=== PATIENT | male | born 1940 | race Caucasian/White ===

== ENCOUNTER 2020-06-30 09:26 | Day surgery (SDC) | payer MEDICARE, BC ==
[~2020-06-30 09:26] MED LIST: Lactated Ringers 1,000 ML IV SCH; Sodium Chloride 0.9% 10 ML Syringe FLUSH PRN
--- NOTE | 2020-06-30 10:46 | PCM.HPR ---
H & P Addendum review - H & P Addendum Review Date of Original H & P: 06/15/20 Date Reviewed: 06/30/20 Time Reviewed: 10:45 Patient was Examined: No Changes
[2020-06-30] MEDS ORDERED: Midazolam 1 MG/ML 2 ML SDV ONE ×2 (10:56)
[2020-06-30] MEDS ORDERED: Propofol 200 MG/20 ML SDV ONE ×2 (10:56)
--- NOTE | 2020-06-30 11:28 | PCM.OPNOTE ---
- General Post-Op/Procedure Note Date of Surgery/Procedure: 06/30/20 Operative Procedure(s): Colonoscopy Findings: Diverticulosis Pre Op Diagnosis: Hx Polyps Post-Op Diagnosis: Same Anesthesia Technique: FRANCIS Primary Surgeon: Ford Camp Anesthesia Provider: Nayely Sheldon Complications: None Condition: Good
[2020-06-30 14:00] VITALS: BP 116/74; PULSE 78
--- NOTE | 2020-07-05 07:02 | OR ---
Date of Procedure: 06/30/2020 PREOPERATIVE DIAGNOSIS: History of colon polyps. POSTOPERATIVE DIAGNOSIS: Diverticulosis. PROCEDURE: Colonoscopy. ANESTHESIA: IV sedation. PROCEDURE IN DETAIL: The patient was brought to the procedure room where he was placed on his left side and IV sedation administered. Digital rectal exam was performed, which was normal. Colonoscope was inserted and advanced to the level of the cecum without difficulty. Cecal position was confirmed by identifying the appendiceal lumen and ileocecal valve. Prep was good with some thick liquid stool remaining in the cecum and minimal throughout the colon that was mostly irrigated and suctioned. I was able to visualize the cecum well, and there was no recurrence of his previous large polyp. Upon withdrawing the scope, he has diverticulosis throughout the entire colon, most notably on the left side. Rectum was normal and retroflexion was normal. Air was removed and the scope withdrawn. Patient tolerated the procedure well and returned to recovery in stable condition. No further colonoscopies are necessary due to the patient's age. ARIELLE ISSA MD /[id number]
== END 2020-06-30 13:15 | disposition home or self-care (01) ==
LOC: LL.SDS 09:26
PROVIDERS: ATTEND Surgery
DX: Z12.11 Encounter for screening for malignant neoplasm of colon (principal); K57.30 Diverticulosis of large intestine without perforation or abscess without bleeding; Z01.812 Encounter for preprocedural laboratory examination; Z20.828 Contact with and (suspected) exposure to other viral communicable diseases; I10 Essential (primary) hypertension; Z98.890 Other specified postprocedural states; E11.42 Type 2 diabetes mellitus with diabetic polyneuropathy; Z79.899 Other long term (current) drug therapy; Z88.8 Allergy status to other drugs, medicaments and biological substances; Z87.891 Personal history of nicotine dependence; L98.491 Non-pressure chronic ulcer of skin of other sites limited to breakdown of skin; R31.9 Hematuria, unspecified
CPT/HCPCS: 00812; 82962; G0105; J2250; J2704; J7120; U0002

== ENCOUNTER 2020-12-14 18:17 | Emergency (ER) | payer MEDICARE, BC ==
[2020-12-14 18:29] VITALS: PULSE 63
[2020-12-14 19:04] VITALS: BP 141/91
--- NOTE | 2020-12-14 19:07 | EDM.PDOC ---
ED HPI GENERAL MEDICAL PROBLEM - General Chief Complaint: General Stated Complaint: hypertension Time Seen by Provider: 12/14/20 18:35 Source of Information: Reports: Patient, Family History Limitations: Reports: No Limitations - History of Present Illness INITIAL COMMENTS - FREE TEXT/NARRATIVE: Pt. presents to ER with complaints of elevated blood pressure. Pt. states that he took his BP at home several times today and states that his BP was in the 190/100 range on his home wrist blood pressure cuff. Pt. has a history of chronic hypoxia and exercise intolerance. He has seen Dr. Wood from [facility] for this, and is scheduled to have a stress test later this month. Pt. states that he has been experiencing weakness in both of his legs and shortness of breath when walking for months. Pt. states that he contacted the cardiology clinic about his blood pressure today and they advised him to come to the ER for evaluation. Pt. denies any current chest pain, palpitation, nausea, or vomiting. He does have dyspnea on exertion, but states that this is chronic for him. No acute complaints today, other than elevated BP on home machine. Onset: Today - Related Data Allergies Allergy/AdvReac Type Severity Reaction Status Date / Time aspirin Allergy Severe GI Bleed Verified 12/14/20 18:19 NSAIDS (Non-Steroidal Allergy Severe GI Bleed Verified 12/14/20 18:19 Anti-Inflamma pregabalin [From Lyrica] Allergy Severe Pain, Verified 12/14/20 18:19 Suicidal Idiations moexipril HCl [From Univasc] Allergy Intermediate Shaking, Verified 12/14/20 18:19 brusing, bleeding tramadol Allergy Mild Itching, Verified 12/14/20 18:19 Rash amlodipine Allergy Other Verified 12/14/20 18:19 levofloxacin [From Levaquin] Allergy Muscle Verified 12/14/20 18:19 Aches Home Meds: Home Meds Acetaminophen [Tylenol Extra Strength] 500 mg PO Q6HR PRN 12/06/15 [History] Cinnamon Bark [Cinnamon] 1,000 mg PO DAILY@1200 12/06/15 [History] Fish Oil/[place]-3 Fatty Acids [Fish Oil 1,000 MG] 1 tab PO DAILY@0800 12/06/15 [History] Mirtazapine [Remeron] 30 mg PO BEDTIME 12/06/15 [History] Multivitamin [Multi-Vitamin Daily] 1 each PO DAILY@0800 12/06/15 [History] Omeprazole 20 mg PO DAILY@1800 12/06/15 [History] Spironolact/Hydrochlorothiazid [Spironolactone-HCTZ 25-25] 1 tab PO DAILY@08 12/06/15 [History] Betamethasone/Clotrimazole [Lotrisone] 1 applic TOP ASDIRECTED PRN 12/13/15 [History] Cholecalciferol (Vitamin D3) [Vitamin D3] 1,000 unit PO DAILY@1800 12/13/15 [History] Magnesium Oxide 1,600 mg PO DAILY 12/13/15 [History] DULoxetine [Cymbalta] 60 mg PO BID 07/03/16 [History] Vitamin B Complex 1 tab PO DAILY@1200 07/03/16 [History] Ascorbic Acid [Vitamin C] 1,000 mg PO BID 06/22/20 [History] Metoprolol Tartrate 25 mg PO BID 06/22/20 [History] Modafinil [Provigil] 50 mg PO DAILY 06/22/20 [History] Triamcinolone Acetonide [Kenalog 0.1% Crm] 1 applic TOP BID PRN 06/22/20 [History] buPROPion HCL [Wellbutrin Xl] 150 mg PO DAILY 06/22/20 [History] Calcium Carbonate/Vitamin D3 [Calcium Carbonate/Vitamin D 600 MG-200 Unit] 2 tab PO DAILY 06/30/20 [History] Past Medical History HEENT History: Reports: Cataract Other HEENT History: wears glasses. Has full upper denture Cardiovascular History: Reports: Hypertension Respiratory History: Reports: Sleep Apnea Gastrointestinal History: Reports: Colon Polyp Other Gastrointestinal History: bleeding ulcers Genitourinary History: Reports: Renal Calculus Musculoskeletal History: Reports: Arthritis, Fracture Other Musculoskeletal History: recurrent falls Neurological History: Reports: Neuropathy, Peripheral Other Neuro History: history to bleed to head after fall down stairs 2006 Psychiatric History: Reports: Anxiety, Depression Endocrine/Metabolic History: Reports: Obesity/BMI 30+, Vitamin D Deficiency Oncologic (Cancer) History: Reports: None Dermatologic History: Reports: Cellulitis Other Dermatologic History: recent surgery to left lower leg/ankle. healing lacerations to left ankle. healing wounds. - Infectious Disease History Infectious Disease History: Reports: MRSA Other Infectious Disease History: recent history of bacteremia patient states from sores on his legs and surgery - Past Surgical History HEENT Surgical History: Reports: Cataract Surgery GI Surgical History: Reports: Appendectomy, Cholecystectomy Male Surgical History: Reports: Kidney Stone Extraction, Lithotripsy ([facility]), Renal Calculus, Other (See Below) Other Male Surgeries/Procedures: hx. of stent placement for kidney stones Musculoskeletal Surgical History: Reports: Knee Replacement, Shoulder Surgery, Other (See Below) Other Musculoskeletal Surgeries/Procedures:: Bilateral ankle fusion Dermatological Surgical History: Reports: Other (See Below) - History Comment History Comment: See dictation Social & Family History - Tobacco Use Tobacco Use Status *Q: Former Tobacco User Used Tobacco, but Quit: Yes Month/Year Tobacco Last Used: 1973 Second Hand Smoke Exposure: No - Caffeine Use Caffeine Use: Reports: Coffee - Recreational Drug Use Recreational Drug Use: No ED ROS GENERAL - Review of Systems Review Of Systems: See Below Constitutional: Denies: Diaphoresis Respiratory: Reports: Shortness of Breath (on exertion). Denies: Cough, Sputum, Hemoptysis Cardiovascular: Denies: Chest Pain Endocrine: Reports: No Symptoms GI/Abdominal: Reports: No Symptoms. Denies: Hematemesis, Hematochezia, Nausea, Vomiting : Reports: No Symptoms Musculoskeletal: Reports: No Symptoms Skin: Reports: No Symptoms Neurological: Reports: No Symptoms, Other (no unilateral weakness, numbness or tingling in extremities. No problems with speech or ambulation. ) Psychiatric: Reports: No Symptoms Hematologic/Lymphatic: Reports: No Symptoms Immunologic: Reports: No Symptoms ED EXAM, GENERAL - Physical Exam Exam: See Below Exam Limited By: No Limitations General Appearance: Alert, WD/WN, No Apparent Distress Head: Atraumatic, Normocephalic Neck: Supple, Non-Tender Respiratory/Chest: No Respiratory Distress, Lungs Clear, Normal Breath Sounds, No Accessory Muscle Use, Chest Non-Tender Cardiovascular: Normal Peripheral Pulses, Regular Rate, Rhythm, Other (+ peripheral edema, pt. states is unchanged.) GI/Abdominal: Soft, Non-Tender, No Distention, No Mass Extremities: Normal Inspection, Normal Range of Motion, Pedal Edema, Other (Pt. ambulated in ER holding a wheelchair. Uses a walker at home.) Neurological: Alert, Oriented, CN II-XII Intact, Normal Cognition, Normal Reflexes Psychiatric: Normal Affect, Normal Mood Skin Exam: Warm, Dry, Intact, Normal Color Course - Vital Signs Last Recorded V/S: Last Vital Signs Temp 36.1 C 12/14/20 18:28 Pulse 63 12/14/20 18:28 Resp 16 12/14/20 18:28 BP 141/91 H 12/14/20 19:04 Pulse Ox 95 12/14/20 18:28 Departure - Departure Time of Disposition: 19:40 Disposition: Home, Self-Care 01 Clinical Impression: Hypertension - Discharge Information Referrals: Marianne Mcknight PA [Primary Care Provider] - Forms: ED Department Discharge Additional Instructions: Follow-up with cardiology as directed. Return to ER if you have any chest pain, shortness of breath at rest. Make sure you are using your walker when you are up and around. Sepsis Event Note (ED) - Evaluation Sepsis Screening Result: No Definite Risk - Focused Exam Vital Signs: Vital Signs Temp Pulse Resp BP Pulse Ox 12/14/20 19:04 141/91 H 12/14/20 18:28 36.1 C 63 16 140/78 95 - Problem List Review Problem List Initiated/Reviewed/Updated: Yes - Assessment/Plan Plan: Pt. was taken for a walk around the department tonight. Overall, he did well. He did complain of some fatigue toward the end, but this is consistent with the symptoms he is being worked up for with cardiology. He did not experience any chest pain. Vitals were checked when sitting and standing with no significant change in heart rate. BP remained about the same. Pt. was offered further workup but refused, stating he was most concerned about his BP, since the other problems have been going on for some time. Advised close follow-up with primary care and specialty providers. All questions were answered.
== END 2020-12-14 19:15 | disposition home or self-care (01) ==
LOC: LL.ED 18:17
DX: I10 Essential (primary) hypertension (principal); G62.9 Polyneuropathy, unspecified; E66.9 Obesity, unspecified; Z87.891 Personal history of nicotine dependence; Z88.6 Allergy status to analgesic agent; Z88.8 Allergy status to other drugs, medicaments and biological substances; Z88.5 Allergy status to narcotic agent; Z88.1 Allergy status to other antibiotic agents; Z79.899 Other long term (current) drug therapy
CPT/HCPCS: 99283

== ENCOUNTER 2020-12-25 02:09 | Emergency (ER) | payer MEDICARE, BC ==
[2020-12-25 02:16] VITALS: BP 145/73; PULSE 55
--- NOTE | 2020-12-25 02:37 | EDM.PDOC ---
ED HPI GENERAL MEDICAL PROBLEM - General Chief Complaint: Lower Extremity Injury/Pain Stated Complaint: left foot 2nd toe pain Time Seen by Provider: 12/25/20 02:25 Source of Information: Reports: Patient, Family, Old Records ([facility] chart/EMR) History Limitations: Reports: No Limitations - History of Present Illness INITIAL COMMENTS - FREE TEXT/NARRATIVE: The patient was brought to the emergency room via private automobile by his for evaluation of a 1 day history of increasing ulceration and redness of his second left toe with no history of injury and the patient compliant with his diabetic shoes. There has been some mild drainage from this area with 8/10 throbbing type pain at this time. He does not normally take Accu-Cheks, although his diabetes has been under good control with no current medications required. The patient denies any chest pain/pressure, heart flutter, dizziness, orthostasis, orthopnea, diaphoresis, paresthesias, recent decreased exercise tolerance, or any other anginal-type symptoms. No recent history of abdominal pain, heartburn, nausea, diarrhea, melena, gross hematochezia, or any food intolerance, including fatty foods, etc.. He denies any gross hematuria, colic, or with UTI symptoms. The patient also denies any recent fever, cough, wheezing, dyspnea, etc.. Onset: Gradual Onset Date: 12/24/20 Duration: Constant, Getting Worse Location: Reports: Lower Extremity, Left. Denies: Head, Face, Neck, Chest, Ab domen, Back, Pelvis, Upper Extremity, Left, Upper Extremity, Right, Lower Extremity, Right, Radiates to Quality: Reports: Ache, Same as Previous Episode Severity: Moderate Improves with: Reports: None Worsens with: Reports: None Context: Reports: Other (As above). 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(s) Left Toe-Long Pain Score (Numeric/FACES): 8 - Related Data Allergies Allergy/AdvReac Type Severity Reaction Status Date / Time aspirin Allergy Severe GI Bleed Verified 12/25/20 02:17 NSAIDS (Non-Steroidal Allergy Severe GI Bleed Verified 12/25/20 02:17 Anti-Inflamma pregabalin [From Lyrica] Allergy Severe Pain, Verified 12/25/20 02:17 Suicidal Idiations moexipril HCl [From Univasc] Allergy Intermediate Shaking, Verified 12/25/20 02:17 brusing, bleeding tramadol Allergy Mild Itching, Verified 12/25/20 02:17 Rash amlodipine Allergy Other Verified 12/25/20 02:17 levofloxacin [From Levaquin] Allergy Muscle Verified 12/25/20 02:17 Aches Home Meds: Home Meds Acetaminophen [Tylenol Extra Strength] 500 mg PO Q6HR PRN 12/06/15 [History] Cinnamon Bark [Cinnamon] 1,000 mg PO DAILY@1200 12/06/15 [History] Mirtazapine [Remeron] 30 mg PO BEDTIME 12/06/15 [History] Multivitamin [Multi-Vitamin Daily] 1 each PO DAILY@0800 12/06/15 [History] Omeprazole 20 mg PO DAILY@1800 12/06/15 [History] Spironolact/Hydrochlorothiazid [Spironolactone-HCTZ 25-25] 1 tab PO DAILY@08 12/06/15 [History] Betamethasone/Clotrimazole [Lotrisone] 1 applic TOP ASDIRECTED PRN 12/13/15 [History] Cholecalciferol (Vitamin D3) [Vitamin D3] 1,000 unit PO DAILY@1800 12/13/15 [History] Magnesium Oxide 1,600 mg PO DAILY 12/13/15 [History] DULoxetine [Cymbalta] 60 mg PO BID 07/03/16 [History] Vitamin B Complex 1 tab PO DAILY@1200 07/03/16 [History] Ascorbic Acid [Vitamin C] 1,000 mg PO BID 06/22/20 [History] Metoprolol Tartrate 25 mg PO BID 06/22/20 [History] Triamcinolone Acetonide [Kenalog 0.1% Crm] 1 applic TOP BID PRN 06/22/20 [History] buPROPion HCL [Wellbutrin Xl] 150 mg PO DAILY 06/22/20 [History] Calcium Carbonate/Vitamin D3 [Calcium Carbonate/Vitamin D 600 MG-200 Unit] 2 tab PO DAILY 06/30/20 [History] Naproxen Sodium [Aleve] 1 cap PO BID 12/25/20 [History] Sulfamethoxazole/Trimethoprim [Septra DS] 1 each PO BID #14 tab 12/25/20 [Rx] Past Medical History HEENT History: Reports: Cataract, Sinusitis Other HEENT History: Patient wears glasses. Complete upper dentures. Cardiovascular History: Reports: CAD, Cardiomyopathy, High Cholesterol, Hypertension, Other (See Below) Other Cardiovascular History: Coronary artery calcifications by x-rays with no history of [place]. Cardiomegaly. Respiratory History: Reports: Bronchitis, Recurrent, COPD, Intubation, Previous, Sleep Apnea, Other (See Below). Denies: Intubation, Difficult Other Respiratory History: Patient is compliant with his CPAP. Gastrointestinal History: Reports: Cholelithiasis, Colon Polyp, Diverticulosis, Gastritis, GERD, GI Bleed, PUD. Denies: Pancreatitis Other Gastrointestinal History: Upper GI bleed requiring previous blood transfusions. Benign gastritis/gastric polyp by EGD as below. Colonic polyps of unknown type. Possible unknown type of pancreatic mass by CT scan in 2017 with no further work-up. Genitourinary History: Reports: BPH, Renal Calculus, UTI, Recurrent, Other (See Below). Denies: Acute Renal Failure, Chronic Renal Insuffiency, Diabetic Nephropathy Other Genitourinary History: Recurrent UTIs with history of urosepsis. Bilateral nephrolithiasis and urolithiasis requiring procedures as below. Musculoskeletal History: Reports: Arthritis, Back Pain, Chronic, Fracture, Neck Pain, Chronic, Osteoarthritis, Other (See Below) Other Musculoskeletal History: Polymyalgia. Right shoulder/proximal humeral fracture requiring surgery in his 60s as below. Neurological History: Reports: Concussion, Headaches, Chronic, Head Trauma, Neuropathy, Diabetic, Neuropathy, Peripheral, Other (See Below) Other Neuro History: History to bleed to head after fall down stairs 2006 with additional history of recurrent falls. Psychiatric History: Reports: Anxiety, Depression Endocrine/Metabolic History: Reports: Diabetes, Type II, Hypomagnesemia, Obesity/BMI 30+, Vitamin D Deficiency, Other (See Below). 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 Hyponatremia Hematologic History: Reports: Anemia, Blood Transfusion(s), Other (See Below) Other Hematologic History: Blood transfusion secondary to upper GI bleed as above. Oncologic (Cancer) History: Reports: None Dermatologic History: Reports: Cellulitis, Venous Stasis Dermatitis Other Dermatologic History: Recurrent diabetic ulcers with additional history of MRSA. - Infectious Disease History Infectious Disease History: Reports: Chicken Pox, Influenza, MRSA, Mumps, Shingles Other Infectious Disease History: Possible history of sepsis from his diabetic ulcers. - Past Surgical History HEENT Surgical History: Reports: Cataract Surgery, Oral Surgery, Other (See Below) Other HEENT Surgeries/Procedures: Complete upper dentures. GI Surgical History: Reports: Appendectomy, Cholecystectomy, Colonoscopy, EGD, Polypectomy, Other (See Below) Other GI Surgeries/Procedures: ED on 11/20/2012 with polypectomy of benign gastric polyp. Last colonoscopy on 06/30/2020 with no evidence of recurrence of his previous colonic polyp. Male Surgical History: Reports: Kidney Stone Extraction, Lithotripsy (ES[facility]), Renal Calculus, Ureteral Stent, Other (See Below) Musculoskeletal Surgical History: Reports: Arthroscopic Procedure, Joint Replacement, Knee Replacement, ORIF, Shoulder Surgery, Other (See Below) Other Musculoskeletal Surgeries/Procedures:: ORIF of right proximal humeral fracture in his 60s. Bilateral TKA in 2001. 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 Left Achilles tendon repair. Dermatological Surgical History: Reports: Skin Graft, Other (See Below) Other Dermatological Surgeries/Procedures: Unsuccessful left heel skin graft in 2014. - Past Imaging History Past Imaging History: Reports: CAT Scan (Head on 12/06/2015, 02/17/2014, 03/27/2013. Sinuses on 03/12/2013. Abdomen and pelvis on 09/24/2016 and 01/20/2016. Left ankle on 02/15/2016. Maxillofacial on 02/17/2014), MRI (Brain on 02/04/2017.), Ul trasound (Renal on 02/04/2017 and 07/06/2016.) - History Comment History Comment: See dictation Social & Family History - Tobacco Use Tobacco Use Status *Q: Former Tobacco User Tobacco Use Within Last Twelve Months: No Years of Tobacco use: 57 Packs/Tins Daily: 1 Packs/Tins Daily Comment: Smoked between ages 16 and 73. 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 ED EXAM, GENERAL - Physical Exam Exam: See Below Exam Limited By: No Limitations General Appearance: Alert, WD/WN, No Apparent Distress Head: Atraumatic, Normocephalic Neck: Normal Inspection, Supple, Non-Tender, Full Range of Motion, Carotid Bruit (Mild bilateral carotid bruits). No: Lymphadenopathy (L), Lymphadenopathy (R), Thyromegaly Respiratory/Chest: No Respiratory Distress, Lungs Clear, Normal Breath Sounds, No Accessory Muscle Use, Chest Non-Tender. No: Pleural Rub, Retractions Cardiovascular: Normal Peripheral Pulses, No Gallop, No JVD, No Murmur, No Rub, Bradycardia (Mild, regular rhythm). No: No Edema (Dependent edema as below), Gallop/S3, Gallop/S4, Friction Rub Peripheral Pulses: 2+: Radial (L), Radial (R), Dorsalis Pedis (L), Dorsalis Pedis (R) GI/Abdominal: Normal Bowel Sounds, Soft, Non-Tender, No Organomegaly, No Distention, No Abnormal Bruit, No Mass, Other (Obese). No: Guarding (Male) Exam: Deferred Rectal (Males) Exam: Deferred Back Exam: Normal Inspection, Full Range of Motion. No: CVA Tenderness (L), CVA Tenderness (R), Muscle Spasm Extremities: Normal Range of Motion, Normal Capillary Refill, Pedal Edema (+1 bilateral pedal/pretibial edema), Leg Pain (Minimal tenderness over diabetic toe ulcer), Redness (+1 Erythema surrounding a 0.5 cm grade 2 diabetic toe ulcer over the PIP of his second left toe with only minimal drainage), Other (Pes planus bilaterallymoderate. Diabetic shoes bilaterally). No: Dara's Sign, Increased Warmth Neurological: Alert, Oriented, CN II-XII Intact, Normal Cognition, Normal Gait, No Motor/Sensory Deficits Psychiatric: Normal Affect, Normal Mood Skin Exam: Erythema (As above), Wound/Incision (Diabetic toe ulcer as above with additional possible beginning first left toe ulcer), Other (Venous dermatitis bilaterally including left distal anterior tibial region moderate in nature). No: Diaphoretic, Increased Warmth, Lymphangitis Lymphatic: No Adenopathy Course - Vital Signs Last Recorded V/S: Last Vital Signs Temp 36.6 C 12/25/20 02:11 Pulse 55 L 12/25/20 02:11 Resp 18 12/25/20 02:11 BP 145/73 H 12/25/20 02:11 Pulse Ox 97 12/25/20 02:11 Vital Signs - 24 hr 12/25/20 02:11 Temperature [ 36.6 C Temporal] Pulse, 55 L Peripheral [ Left Pulse Oximetry] Respiratory 18 Rate Blood Pressure 145/73 H [Left Upper Arm ] O2 Sat by Pulse 97 Oximetry - Orders/Labs/Meds Orders: Active Orders 24 hr Category Date Time Status Blood Glucose Check, Bedside [RC] STAT Care 12/25/20 02:34 Active CULTURE WOUND + SMEAR [RM] Stat Lab 12/25/20 02:34 Ordered Obtain Past Medical Record [OM.PC] Routine Oth 12/25/20 02:34 Active Labs: Laboratory Tests 12/25/20 Range/Units 02:41 POC Glucose 123 H (70-99) mg/dL Wound specimen collected for Gram stain, culture, and sensitivity. Meds: Medications Discontinued Medications Generic Name Dose Route Start Last Admin Trade Name Freq PRN Reason Stop Dose Admin Neomycin/Polymyxin/Bacitracin 1 each 12/25/20 02:36 12/25/20 02:52 Bacitracin/Neomycin/Polymyxin B Oint 0.9 Gm U/D Packet TOP 12/25/20 02:37 1 each ONETIME ONE Administration - Radiology Interpretation Free Text/Narrative:: None Departure - Departure Time of Disposition: 03:17 Disposition: Home, Self-Care 01 Condition: Good Clinical Impression: Mixed anxiety depressive disorder Cellulitis Qualifiers: Site of cellulitis: extremity Site of cellulitis of extremity: lower extremity Laterality: left Qualified Code(s): L03.116 - Cellulitis of left lower limb Diabetes mellitus Qualifiers: Diabetes mellitus type: type 2 Diabetes mellitus intermediate designer insulin use: without intermediate designer use Diabetes mellitus complication status: without complication Qualified Code(s): E11.9 - Type 2 diabetes mellitus without complications Osteoarthritis Qualifiers: Osteoarthritis location: multiple joints Osteoarthritis type: primary Qualified Code(s): M89.49 - Other hypertrophic osteoarthropathy, multiple sites - Discharge Information *PRESCRIPTION DRUG MONITORING PROGRAM REVIEWED*: Not Applicable *COPY OF PRESCRIPTION DRUG MONITORING REPORT IN PATIENT BRANDON: Not Applicable Prescriptions: Sulfamethoxazole/Trimethoprim [Septra DS] 1 each PO BID #14 tab Instructions: Diabetes Mellitus and Foot Care, Cellulitis, Adult, [id number], Sulfamethoxazole; Trimethoprim, [id number] tablets Referrals: Marianne Mcknight PA [Primary Care Provider] - Forms: ED Department Discharge Additional Instructions: 1. Follow-up with your regular provider on 12/26 as already scheduled and discussed today's emergency room visit and new antibiotic medication/Bactrim. 2. Consider discontinuation of recently initiated Aleve secondary to your previous history of stomach ulcers with this type of medication. Avoid OTC aspirin, ibuprofen, etc. with all of these medications in the NSAID class 3. A specimen for culture and sensitivity has been collected from your toe as discussed 4. Take all 10 days of your new Bactrim DS, i.e., both the medication supplied in the emergency room and also that sent to your pharmacy. 5. Antibacterial soap wash/soak with subsequent antibacterial dressing such as Neosporin, etc. as directed 2 times per day until the wound site completely heals. Keep the area clean and dry with activity restrictions as discussed. Never use hydrogen peroxide for wound care. 6. Relieve pressure from your foot area until wound heals with limited diabetic shoe use, etc. as discussed 7. Immediately after this visit verify that your cellular telephone's voicemail has been activated and is empty. Also verify that your home telephone's answering machine is operating properly and has space to receive messages. Note that it is sometimes necessary for us to be able to contact you at a later date to discuss your medical care. 8. Please remember that we are ALWAYS here for you and want to answer any questions you may have. Feel free to call the hospital any time and we call you back MAURI. Sepsis Event Note (ED) - Evaluation Sepsis Screening Result: No Definite Risk - Focused Exam Vital Signs: Vital Signs Temp Pulse Resp BP Pulse Ox 12/25/20 02:11 36.6 C 55 L 18 145/73 H 97 - Problem List & Annotations (1) Cellulitis SNOMED Code(s): 588301623 Code(s): L03.90 - CELLULITIS, UNSPECIFIED Status: Acute Priority: High Onset Date: ~12/24/20 Annotation/Comment:: Grade 2 diabetic left toe ulcer as above with specimen collected for culture and sensitivity as above. Neosporin dressing placed by the nurse. Note previous disinfection with chlorhexidine in this facility. Secondary to his history of MRSA patient was initiated on Bactrim DS. Close follow-up by regular provider. Podiatry referral depending on his clinical course with patient already having diabetic shoes. Qualifiers: Site of cellulitis: extremity Site of cellulitis of extremity: lower extremity Laterality: left Qualified Code(s): L03.116 - Cellulitis of left l ower limb (2) Diabetes type 2, controlled SNOMED Code(s): 88155394, 246582914 Code(s): E11.9 - TYPE 2 DIABETES MELLITUS WITHOUT COMPLICATIONS Status: Chronic Priority: Medium Annotation/Comment:: Random Accu-Chek normal in this facility. He is not currently on any medications. Weight loss in moderation is advisable. Close follow-up by regular provider. Qualifiers: Diabetes mellitus intermediate designer insulin use: unspecified intermediate designer insulin use status Diabetes mellitus complication status: without complication Qualified Code(s): E11.9 - Type 2 diabetes mellitus without complications (3) Osteoarthritis SNOMED Code(s): 499655878 Code(s): M19.90 - UNSPECIFIED OSTEOARTHRITIS, UNSPECIFIED SITE Status: Chronic Priority: Medium Annotation/Comment:: Patient has been having worsening chronic right shoulder pain during the last month with patient starting Aleve on his own 1 month ago in spite of his previous history of bleeding gastric ulcers requiring transfusions from previous NSAIDs. He was advised to discuss this further with his regular provider with probable discontinuation of this medication. Qualifiers: Osteoarthritis location: multiple joints Osteoarthritis type: primary Qualified Code(s): M89.49 - Other hypertrophic osteoarthropathy, multiple sites (4) Mixed anxiety depressive disorder SNOMED Code(s): 369328788 Code(s): F41.8 - OTHER SPECIFIED ANXIETY DISORDERS Status: Chronic Priority: Medium Annotation/Comment:: Stable by patient history (5) Peptic reflux disease SNOMED Code(s): 511000900 Code(s): K21.9 - GASTRO-ESOPHAGEAL REFLUX DISEASE WITHOUT ESOPHAGITIS Status: Chronic Priority: Medium Annotation/Comment:: Stable by history (6) Hypertension SNOMED Code(s): 69027407 Code(s): I10 - ESSENTIAL (PRIMARY) HYPERTENSION Status: Chronic Priority: Medium Annotation/Comment:: Stable by history. Continue to observe closely by his regular provider. Qualifiers: Hypertension type: essential hypertension Qualified Code(s): I10 - Essential (primary) hypertension - Problem List Review Problem List Initiated/Reviewed/Updated: Yes - My Orders Last 24 Hours: My Active Orders 12/25/20 02:34 Blood Glucose Check, Bedside [RC] STAT CULTURE WOUND + SMEAR [RM] Stat Obtain Past Medical Record [OM.PC] Routine - Assessment/Plan Last 24 Hours: My Active Orders 12/25/20 02:34 Blood Glucose Check, Bedside [RC] STAT CULTURE WOUND + SMEAR [RM] Stat Obtain Past Medical Record [OM.PC] Routine Assessment:: As above Plan: As above. Extensive precautions were given to the patient and his , who are in agreement with the treatment plan. See Patient Instructions for further treatment and plan.
[2020-12-25] MEDS: Bacitracin/Neomycin/Polymyxin B Oint 0.9 GM U/D Packet TOP ONE (02:52)
== END 2020-12-25 03:20 | disposition home or self-care (01) ==
LOC: LL.ED 02:09
DX: L03.116 Cellulitis of left lower limb (principal); M89.49 Other hypertrophic osteoarthropathy, multiple sites; E11.9 Type 2 diabetes mellitus without complications; F41.9 Anxiety disorder, unspecified; Z87.891 Personal history of nicotine dependence; Z88.8 Allergy status to other drugs, medicaments and biological substances; Z88.5 Allergy status to narcotic agent; Z88.1 Allergy status to other antibiotic agents
CPT/HCPCS: 82947; 87070; 87205; 99283; 99284

== ENCOUNTER 2021-09-21 12:30 | Emergency (ER) | payer BC, MEDICARE ==
[2021-09-21 12:35] VITALS: PULSE 69
[2021-09-21 12:38] VITALS: BP 102/63
[2021-09-21 13:38] LABS: CORONAVIRUS COVID-19 NAA NEGATIVE (NEGATIVE); RESPIRATORY SYNCYTIAL VIR NAA NEGATIVE (NEGATIVE)
[2021-09-21 13:49] LABS: ANION GAP 7.6 meq/L (7-15); CHLORIDE,CL 102 mmol/L (98-107); SODIUM,NA 141 mmol/L (136-145)
[2021-09-21] MEDS ORDERED: Cephalexin 250 MG Cap PO ONE (15:15)
== END 2021-09-21 15:30 | disposition home or self-care (01) ==
LOC: LL.ED 12:30
DX: L03.116 Cellulitis of left lower limb (principal); I25.10 Atherosclerotic heart disease of native coronary artery without angina pectoris; I10 Essential (primary) hypertension; E78.00 Pure hypercholesterolemia, unspecified; J44.9 Chronic obstructive pulmonary disease, unspecified; K21.9 Gastro-esophageal reflux disease without esophagitis; M19.90 Unspecified osteoarthritis, unspecified site; E11.9 Type 2 diabetes mellitus without complications; D64.9 Anemia, unspecified; E66.9 Obesity, unspecified; Z68.34 Body mass index [BMI] 34.0-34.9, adult; Z88.8 Allergy status to other drugs, medicaments and biological substances; Z88.6 Allergy status to analgesic agent; Z88.5 Allergy status to narcotic agent; Z88.1 Allergy status to other antibiotic agents; Z79.899 Other long term (current) drug therapy; Z20.822 Contact with and (suspected) exposure to COVID-19
CPT/HCPCS: 0241U; 36415; 71046; 80053; 81001; 83605; 83735; 85025; 87070; 87086; 87205; 99284; A9270

== ENCOUNTER 2023-06-13 11:35 | Emergency (ER) | payer MEDICARE ==
[2023-06-13 11:52] LABS: BASOPHILS ABSOLUTE AUTO 0.03 K/uL (0.00-0.20); BASOPHILS PERCENT AUTO 0.6 % (0.0-2.0); EOSINOPHILS ABSOLUTE AUTO 0.07 K/uL (0.00-0.50); EOSINOPHILS PERCENT AUTO 1.5 % (0.0-5.0); HEMATOCRIT 46.5 % (39.0-49.0); HEMOGLOBIN 15.4 g/dL (13.1-16.8); LYMPHOCYTES ABSOLUTE AUTO 0.91 K/uL (0.50-3.50); LYMPHOCYTES PERCENT AUTO 19.5 % (10.0-50.0); MEAN CORPUSCULAR HEMOGLOBIN 30.7 pg (28.2-33.3); MEAN CORPUSCULAR HGB CONC 33.1 g/dL (31.7-36.0); MEAN CORPUSCULAR VOLUME 92.6 fL (84.0-98.0); MONOCYTES ABSOLUTE AUTO 0.36 K/uL (0.00-1.00); MONOCYTES PERCENT AUTO 7.7 % (2.0-14.0); NEUTROPHILS PERCENT AUTO 70.7 % (45.0-80.0); PLATELET COUNT,PLT 179 K/uL (150-350); RED BLOOD CELL COUNT 5.02 M/uL (4.33-5.41); RED CELL DISTRIBUTION WIDTH 13.1 % (11.2-14.1); WHITE BLOOD CELL COUNT,WBC 4.7 K/uL (4.0-10.2)
[2023-06-13 12:14] LABS: ALANINE AMINOTRANSFERASE,ALT 31 U/L (12-78); ALBUMIN 3.8 g/dL (3.4-5.0); ALKALINE PHOSPHATASE 102 IU/L (46-116); ANION GAP 5.3 meq/L (7-15); ASPARTATE AMNIOTRANSFERASE,AST 32 U/L (15-37); BILIRUBIN TOTAL 0.8 mg/dL (0.2-1.0); BLOOD UREA NITROGEN,BUN 20 mg/dL (7-18); CALCIUM 9.5 mg/dL (8.5-10.1); CARBON DIOXIDE,CO2 31.7 mmol/L (21.0-32.0); CHLORIDE,CL 105 mmol/L (98-107); CREATININE 0.99 mg/dL (0.51-1.17); GLUCOSE RANDOM 151 mg/dL (70-99); MAGNESIUM 1.8 mg/dL (1.8-2.4); POTASSIUM,K 3.7 mmol/L (3.5-5.1); PROTEIN TOTAL,TP 6.8 g/dL (6.4-8.2); SODIUM,NA 142 mmol/L (136-145)
[2023-06-13 12:18] LABS: ESTIMATED GFR 75 mL/min (>=60)
[2023-06-13 12:30] LABS: INR 1.1 (0.9-1.1); PTT,PARTIAL THROMBOPLSTIN TIME 25.2 SEC (23.6-29.8)
[2023-06-13] MEDS: Iopamidol 755 Mg/ML 100 ML Bottle IVPUSH STA (12:40)
[2023-06-13 16:42] VITALS: BP 128/74; PULSE 58
[2023-06-13] MEDS: Aspirin 81 MG Tab.EC PO ONE (18:09)
== END 2023-06-13 18:36 ==
LOC: LL.ED 11:35
DX: G45.9 Transient cerebral ischemic attack, unspecified (principal); I25.10 Atherosclerotic heart disease of native coronary artery without angina pectoris; E78.00 Pure hypercholesterolemia, unspecified; I10 Essential (primary) hypertension; K21.9 Gastro-esophageal reflux disease without esophagitis; E11.9 Type 2 diabetes mellitus without complications; E66.9 Obesity, unspecified; Z88.1 Allergy status to other antibiotic agents; Z88.5 Allergy status to narcotic agent; Z88.6 Allergy status to analgesic agent; Z88.8 Allergy status to other drugs, medicaments and biological substances
CPT/HCPCS: 70450; 70496; 70498; 80053; 83735; 84484; 85025; 85610; 85730; 99285; Q9967

== ENCOUNTER 2023-10-24 08:04 | Day surgery (SDC) | payer MEDICARE ==
[~2023-10-24 08:04] MED LIST changes: -Lactated Ringers 1,000 ML IV SCH
[2023-10-24] MEDS ORDERED: Midazolam 1 MG/ML 2 ML SDV ONE (08:15)
[2023-10-24] MEDS ORDERED: Propofol 200 MG/20 ML SDV ONE (08:15)
[2023-10-24] MEDS: Lactated Ringers 1,000 ML IV SCH (08:36)
[2023-10-24] MEDS ORDERED: Lidocaine 0.5% 50 ML SDV ONE (09:05)
[2023-10-24] MEDS: Bacitracin Oint 1 GM U/D Packet TOP ONE (09:46)
[2023-10-24 10:16] VITALS: BP 134/73; PULSE 50
== END 2023-10-24 10:55 | disposition home or self-care (01) ==
LOC: LL.SDS 08:04
PROVIDERS: ATTEND Surgery
DX: G56.01 Carpal tunnel syndrome, right upper limb (principal); E11.9 Type 2 diabetes mellitus without complications; I10 Essential (primary) hypertension; E66.9 Obesity, unspecified; Z68.28 Body mass index [BMI] 28.0-28.9, adult; Z79.899 Other long term (current) drug therapy; Z88.6 Allergy status to analgesic agent; Z88.8 Allergy status to other drugs, medicaments and biological substances; Z88.1 Allergy status to other antibiotic agents; Z88.5 Allergy status to narcotic agent
CPT/HCPCS: J2250; J2704; J3490; J7120

== ENCOUNTER 2025-03-05 17:15 | Emergency (ER) | payer MEDICARE ==
[2025-03-05 18:01] LABS: BASOPHILS ABSOLUTE AUTO 0.01 K/uL (0.00-0.20); BASOPHILS PERCENT AUTO 0.2 % (0.0-2.0); EOSINOPHILS ABSOLUTE AUTO 0.06 K/uL (0.00-0.50); EOSINOPHILS PERCENT AUTO 1.1 % (0.0-5.0); IMMATURE GRAN ABSOLUTE AUTO 0.00 10^3/uL (0.00-0.04); IMMATURE GRAN PERCENT AUTO 0.0 % (0.0-0.4); LYMPHOCYTES ABSOLUTE AUTO 1.15 K/uL (0.50-3.50); LYMPHOCYTES PERCENT AUTO 20.3 % (10.0-50.0); MONOCYTES ABSOLUTE AUTO 0.43 K/uL (0.00-1.00); MONOCYTES PERCENT AUTO 7.6 % (2.0-14.0); NEUTROPHILS ABSOLUTE AUTO 4.01 K/uL (1.40-7.00); NEUTROPHILS PERCENT AUTO 70.8 % (45.0-80.0); PLATELET COUNT,PLT 181 K/uL (150-350); RED BLOOD CELL COUNT 4.44 M/uL (4.33-5.41); RED CELL DISTRIBUTION WIDTH 13.2 % (11.2-14.1); WHITE BLOOD CELL COUNT,WBC 5.7 K/uL (4.0-10.2)
[2025-03-05] MEDS: Bacitracin Oint 1 GM U/D Packet TOP ONE (18:12)
[2025-03-05] MEDS: Take Home: Cephalexin 500 MG Cap, 6 Cap Pack PO ONE (18:13)
[2025-03-05 18:22] LABS: ALANINE AMINOTRANSFERASE,ALT 42 U/L (12-78); ASPARTATE AMNIOTRANSFERASE,AST 37 U/L (15-37); BILIRUBIN TOTAL 0.6 mg/dL (0.2-1.0); BLOOD UREA NITROGEN,BUN 11 mg/dL (7-18); CARBON DIOXIDE,CO2 29.8 mmol/L (21.0-32.0); CHLORIDE,CL 108 mmol/L (98-107); CREATININE 0.81 mg/dL (0.51-1.17); ESTIMATED GFR 86 mL/min (>=60); GLUCOSE RANDOM 82 mg/dL (70-99); POTASSIUM,K 4.0 mmol/L (3.5-5.1); PROTEIN TOTAL,TP 5.9 g/dL (6.4-8.2); SODIUM,NA 144 mmol/L (136-145)
[2025-03-05 19:35] VITALS: BP 148/102; PULSE 78
== END 2025-03-05 19:20 | disposition home or self-care (01) ==
LOC: LL.ED 17:15
DX: L08.9 Local infection of the skin and subcutaneous tissue, unspecified (principal); I10 Essential (primary) hypertension; E78.00 Pure hypercholesterolemia, unspecified; E11.9 Type 2 diabetes mellitus without complications; Z88.6 Allergy status to analgesic agent; Z88.5 Allergy status to narcotic agent; Z88.8 Allergy status to other drugs, medicaments and biological substances; Z79.899 Other long term (current) drug therapy
CPT/HCPCS: 36415; 80053; 85025; 87070; 87205; 99283; A9270-GY

== ENCOUNTER 2025-08-12 09:19 | Inpatient (IN) | payer MEDICARE ==
[2025-08-12] MEDS ORDERED: Sodium Chloride 0.9% 10 ML Syringe FLUSH PRN (09:42)
[2025-08-12 09:49] LABS: BASOPHILS ABSOLUTE AUTO 0.02 K/uL (0.00-0.20); BASOPHILS PERCENT AUTO 0.3 % (0.0-2.0); EOSINOPHILS ABSOLUTE AUTO 0.10 K/uL (0.00-0.50); EOSINOPHILS PERCENT AUTO 1.5 % (0.0-5.0); IMMATURE GRAN ABSOLUTE AUTO 0.01 10^3/uL (0.00-0.04); IMMATURE GRAN PERCENT AUTO 0.1 % (0.0-0.4); LYMPHOCYTES ABSOLUTE AUTO 1.01 K/uL (0.50-3.50); LYMPHOCYTES PERCENT AUTO 14.9 % (10.0-50.0); MONOCYTES ABSOLUTE AUTO 0.53 K/uL (0.00-1.00); MONOCYTES PERCENT AUTO 7.8 % (2.0-14.0); NEUTROPHILS ABSOLUTE AUTO 5.09 K/uL (1.40-7.00); NEUTROPHILS PERCENT AUTO 75.4 % (45.0-80.0); PLATELET COUNT,PLT 224 K/uL (150-350); RED BLOOD CELL COUNT 3.73 M/uL (4.33-5.41); RED CELL DISTRIBUTION WIDTH 14.8 % (11.2-14.1); WHITE BLOOD CELL COUNT,WBC 6.8 K/uL (4.0-10.2)
[2025-08-12] MEDS: Furosemide 40 MG/4 ML VIAL IVPUSH ONE (09:50)
[2025-08-12 10:07] LABS: LACTIC ACID 0.8 mmol/L (0.4-2.0)
[2025-08-12 10:12] LABS: ALANINE AMINOTRANSFERASE,ALT 29.0 U/L (12-78); ASPARTATE AMNIOTRANSFERASE,AST 52.0 U/L (15-37); BILIRUBIN TOTAL 0.6 mg/dL (0.2-1.0); BLOOD UREA NITROGEN,BUN 16.0 mg/dL (7-18); CARBON DIOXIDE,CO2 25.3 mmol/L (21.0-32.0); CHLORIDE,CL 111.0 mmol/L (98-107); CREATININE 0.99 mg/dL (0.51-1.17); EST CRCL DRUG DOSING (CG) 51.82 mL/min; GLUCOSE RANDOM 91.0 mg/dL (70-99); POTASSIUM,K 5.0 mmol/L (3.5-5.1); PROTEIN TOTAL,TP 5.4 g/dL (6.4-8.2); SODIUM,NA 142.0 mmol/L (136-145)
[2025-08-12 10:14] LABS: ESTIMATED GFR 74.0 mL/min (>=60)
[2025-08-12 10:37] LABS: INR 1.2 (0.9-1.1); PTT,PARTIAL THROMBOPLSTIN TIME 26.9 SEC (23.8-34.4)
[2025-08-12 13:22] LABS: APPEARANCE,URINE CLEAR; GLUCOSE,URINE NEGATIVE (NEGATIVE); OCCULT BLOOD,URINE NEGATIVE (NEGATIVE)
[2025-08-12] MEDS ORDERED: Ondansetron 4 MG Tab.DIS PO PRN (13:34)
[2025-08-12] MEDS: Magnesium Sulfate 2 GM/50 mL 2 GM in Premix Bag 1 BAG IV ONE (14:02)
[2025-08-12 15:00] LABS: ALANINE AMINOTRANSFERASE,ALT 35.0 U/L (12-78); ASPARTATE AMNIOTRANSFERASE,AST 31.0 U/L (15-37); BILIRUBIN TOTAL 0.3 mg/dL (0.2-1.0); BLOOD UREA NITROGEN,BUN 17.0 mg/dL (7-18); CARBON DIOXIDE,CO2 30.3 mmol/L (21.0-32.0); CHLORIDE,CL 111.0 mmol/L (98-107); CREATININE 1.06 mg/dL (0.51-1.17); EST CRCL DRUG DOSING (CG) 48.4 mL/min; GLUCOSE RANDOM 78.0 mg/dL (70-99); POTASSIUM,K 4.4 mmol/L (3.5-5.1); PROTEIN TOTAL,TP 5.0 g/dL (6.4-8.2); SODIUM,NA 145.0 mmol/L (136-145)
[2025-08-12 15:02] LABS: ESTIMATED GFR 68.0 mL/min (>=60)
[2025-08-12] MEDS: Furosemide 40 MG/4 ML VIAL IVPUSH SCH (21:22)
[2025-08-13 07:36] LABS: MEAN PLATELET VOLUME 10.70 fL (7.00-11.50); PLATELET COUNT,PLT 196 K/uL (150-350); RED BLOOD CELL COUNT 3.52 M/uL (4.33-5.41); RED CELL DISTRIBUTION WIDTH 14.9 % (11.2-14.1); WHITE BLOOD CELL COUNT,WBC 7.3 K/uL (4.0-10.2)
[2025-08-13 08:07] LABS: ALANINE AMINOTRANSFERASE,ALT 27.0 U/L (12-78); ASPARTATE AMNIOTRANSFERASE,AST 24.0 U/L (15-37); BILIRUBIN TOTAL 0.4 mg/dL (0.2-1.0); BLOOD UREA NITROGEN,BUN 19.0 mg/dL (7-18); CARBON DIOXIDE,CO2 29.3 mmol/L (21.0-32.0); CHLORIDE,CL 110.0 mmol/L (98-107); CREATININE 1.08 mg/dL (0.51-1.17); EST CRCL DRUG DOSING (CG) 47.5 mL/min; ESTIMATED GFR 67.0 mL/min (>=60); GLUCOSE RANDOM 74.0 mg/dL (70-99); PHOSPHORUS 2.9 mg/dL (2.6-4.7); POTASSIUM,K 3.6 mmol/L (3.5-5.1); PROTEIN TOTAL,TP 4.8 g/dL (6.4-8.2); SODIUM,NA 145.0 mmol/L (136-145)
[2025-08-13] MEDS: buPROPion 150 MG Tab.ER PO SCH (08:57)
[2025-08-13 09:17] VITALS: BP 108/83; PULSE 99
== END 2025-08-13 10:05 | DRG 291 ==
LOC: LL.ED 09:19 → LL.MS 12:02
PROVIDERS: ADMIT Family Medicine; ATTEND Family Medicine
DX: I11.0 Hypertensive heart disease with heart failure (principal); I50.33 Acute on chronic diastolic (congestive) heart failure; Q21.12 Patent foramen ovale; L97.919 Non-pressure chronic ulcer of unspecified part of right lower leg with unspecified severity; L97.929 Non-pressure chronic ulcer of unspecified part of left lower leg with unspecified severity; E46 Unspecified protein-calorie malnutrition; K21.9 Gastro-esophageal reflux disease without esophagitis; M19.90 Unspecified osteoarthritis, unspecified site; R29.6 Repeated falls; F41.1 Generalized anxiety disorder; F32.9 Major depressive disorder, single episode, unspecified; H26.9 Unspecified cataract; H54.7 Unspecified visual loss; E78.00 Pure hypercholesterolemia, unspecified; Z96.653 Presence of artificial knee joint, bilateral; E11.40 Type 2 diabetes mellitus with diabetic neuropathy, unspecified; E66.9 Obesity, unspecified; J44.9 Chronic obstructive pulmonary disease, unspecified; G47.30 Sleep apnea, unspecified; I48.91 Unspecified atrial fibrillation; E88.09 Other disorders of plasma-protein metabolism, not elsewhere classified; I87.2 Venous insufficiency (chronic) (peripheral); N40.0 Benign prostatic hyperplasia without lower urinary tract symptoms; Z87.440 Personal history of urinary (tract) infections; Z87.442 Personal history of urinary calculi; Z88.6 Allergy status to analgesic agent; Z88.8 Allergy status to other drugs, medicaments and biological substances; Z79.899 Other long term (current) drug therapy; Z79.1 Long term (current) use of non-steroidal anti-inflammatories (NSAID); Z86.73 Personal history of transient ischemic attack (TIA), and cerebral infarction without residual deficits; Z68.31 Body mass index [BMI] 31.0-31.9, adult; Z87.81 Personal history of (healed) traumatic fracture; Z89.422 Acquired absence of other left toe(s)
CPT/HCPCS: 36415; 71045; 80053; 81003; 83605; 83735; 83880; 84100; 84443; 84484; 85025; 85027; 85610; 85730; 86140; 87040; 93005; 93010; 96374; 99223-GT; 99239-GT; 99284; 99285-25; A6212; A6213; A9270-GY; C1889; J1938; J3475; Q3014